=== PATIENT | male | born 1965 | race Caucasian/White ===

== ENCOUNTER 2017-05-24 16:05 | Emergency (ER) | payer MEDICARE, MEDICAID ==
[~2017-05-24] VITALS: Ht 177.8 cm; Wt 75.0 kg
[~2017-05-24 16:05] MED LIST: ALBU18HF INH; CARI250T PO; LAMO150T2 PO; LEVE500T3 PO; PRAZ2CAP2 PO; VENL75TA3 PO
--- NOTE | 2017-05-24 16:13 | ED.REPORT ---
HPI-General Illness Date of Service May 24, 2017 ED Provider: Dr. Avila The pt is a 51 y/o male with a hx of anxiety and seizure disorder who presents to the ED complaining of 3/10 aching and non-radiating right sided chest pain that lasted about 5 minutes, onset 2 hours ago while he was resting. The pain returned 15 minutes later and lasted about a minute. There are no modifying factors to his pain. Associated sx include palpitations and shortness of breath with palpitations, and lightheadedness. He states he experienced similar lightheadedness before his previous seizures. He has been compliant with his seizure medications. He denies abdominal pain, nausea, vomiting, constipation, and diarrhea. The pt is asymptomatic in the ED. Nursing Notes Stated Complaint: CHEST PAIN/HIGH PULSE Chief Complaint: Chest Pain Nursing Notes Reviewed: Yes Allergies: Coded Allergies: Aminoglycosides (Verified Allergy, Severe, 05/24/17) Replaces BACITRACIN/NE bacitracin (Verified Allergy, Severe, 05/24/17) Replaces BACITRACIN/NE neomycin (Verified Allergy, Severe, 05/24/17) Replaces BACITRACIN/NE polymyxin B (Verified Allergy, Severe, 05/24/17) Replaces BACITRACIN/NE Scheduled Lamotrigine (Lamotrigine) 150 Mg Tablet 150 MG PO BID Levetiracetam (Levetiracetam) 500 Mg Tablet 500 MG PO BID Prazosin (Prazosin) 2 Mg Capsule 2 MG PO BID Venlafaxine (Venlafaxine) 75 Mg Tablet 75 MG PO BIDWM 1.5 tabs at hs Scheduled PRN Albuterol Sulfate (Ventolin HFA Inhaler) 200 Puff/18 Gm Inhaler 1 PUFF INH Q4 PRN PRN For Wheezing Carisoprodol (Soma) 250 Mg Tablet 250 MG PO TID PRN PRN For Pain General Time Seen by MD: 18:31 Chief Complaint Chest pain Hx Obtained From: Patient Arrived By: Walk-in Sudden in Onset?: Yes Onset Occurred: 1 - 4 hours ago Symptom Duration: 1 - 15 minutes Location: : Chest Quality: Painful Radiation: : Does not radiate Severity: Current: No pain currently Severity: Maximum: Pain level 3 out of 10 Recent Healthcare: No recent doctor visit Past Medical History Past Medical History Hx partial seizures (EMR indicates Keppra and lamictal) Anxiety Cevical stenosis Reports: Depression, Seizure disorder Past Surgical History Vasectomy Rhinoplasty Varicoceleectomy Smoking History Current Every Day Smoker Social History Alcohol Use: Denies alcohol use Drug Use: THC Ambulatory Status Independent HEART Score HEART for MACE Score: 0-3 (low risk 0.9%-1.7%) Review of Systems Full Review of Systems Respiratory: Reports: Shortness of breath (with palpitations) Cardiovascular: Reports: Chest pain, Palpitations GI: Denies: Abdominal pain, Constipation, Diarrhea, Nausea, Vomiting Neurologic: Reports: Lightheaded Complete sys rev & neg: except as marked. Physical Exam Nursing note and vitals reviewed. Constitutional: Well-developed, well-nourished. Not diaphoretic. Head: Normocephalic and atraumatic. Mouth/Throat: Oropharynx is clear and moist. No oropharyngeal exudate. Eyes: EOM are normal. Pupils are equal, round, and reactive to light. Neck: Supple, no tracheal deviation. Cardiovascular: tachycardia,regular rhythm. Equal and intact distal pulses throughout. Pulmonary/Chest: Effort normal and breath sounds normal. No respiratory distress. Abdominal: Soft. No distension. There is no tenderness, rebound, or guarding. Bowel sounds present. Musculoskeletal: Range of motion grossly intact, moving all extremities. No edema or tenderness appreciated. Neurological: AOx3. Grossly nonfocal exam. Strength and sensation intact and equal to bilateral upper and lower extremities. Skin: Warm and dry, no rashes or pallor appreciated. Psychiatric: Appropriate mood and affect. Behavior appears normal. Vital Signs Vital Signs Date Time Temp Pulse Resp B/P Pulse Ox O2 Delivery O2 Flow Rate FiO2 05/24/17 20:30 82 18 110/58 97 Room Air 05/24/17 16:40 98 23 127/83 100 Room Air 05/24/17 16:15 36.5 110 22 130/80 100 Room Air Interpretation & Diagnostics Lab Results Interpretation Result Diagram: 05/24/17 1641 05/24/17 1641 Test 05/24/17 16:41 05/24/17 18:45 White Blood Count 7.2th/mm3 (3.8-10.1) Red Blood Count 4.88mil/mm3 (4.40-5.80) Hemoglobin 15.2g/dL (13.8-17.2) Hematocrit 42.0% (41.0-50.0) Mean Corpuscular Volume 86.1fL (81-100) Mean Corpuscular Hemoglobin 31.1pg (27.0-35.0) Mean Corpuscular Hemoglobin Concent 36.2% (32.0-37.0) Red Cell Distribution Width 12.4% (12.3-15.4) Platelet Count 209bil/L (150-400) Neutrophils (%) (Auto) 53.6% (40-74) Lymphocytes (%) (Auto) 34.3% (14-46) Monocytes (%) (Auto) 9.3% (4-12) Eosinophils (%) (Auto) 2.2% (0-5) Basophils (%) (Auto) 0.3% (0-3) Sodium Level 138mEq/L (134-144) Potassium Level 3.3mEq/L (3.5-5.2) Chloride Level 99mEq/L (97-108) Carbon Dioxide Level 22mmol/L (18-29) Blood Urea Nitrogen 17mg/dL (6-24) Creatinine 1.24mg/dL (0.76-1.27) Estimat Glomerular Filtration Rate 65mL/min (>59) Glucose Level 101mg/dL (60-99) Calcium Level 9.4mg/dL (8.5-10.1) Magnesium Level 2.2mg/dL (1.6-2.6) Total Bilirubin 0.7mg/dL (0.0-1.2) Aspartate Amino Transf (AST/SGOT) 23U/L (0-50) Alanine Aminotransferase (ALT/SGPT) 11U/L (0-44) Alkaline Phosphatase 72U/L (25-150) Total Protein 7.5g/dL (6.4-8.4) Albumin 4.5g/dL (3.4-5.0) Lipase 24U/L (13-60) Troponin T < 0.010ug/L (0.0-0.011) ECG Interpretation ECG Interpretation: Sinus tachycardia. Rate 109. Probable left atrial enlargement. No acute ischemic changes. Time: 16:14 Interpreted by: ED physician X-Ray Chest Interpretation Chest Xray Interpretation: IMPRESSION: Prior rib fractures, on the right at the posterolateral mid chest level. A definite source of acute chest pain is not found. Dictated by: Nicholas Javed M.D. on 05/24/2017 at 16:36 Approved by: Nicholas Javed M.D. on 05/24/2017 at 16:36 View: Portable, 1 view Interpretation / Wet Read by: Interpret - Radiologist Re-Eval/Medical Decision Med Decision/Clinical Course In summary, 51-year-old male with a PMHx notable for hepatitis C who presents to the ED for evaluation of transient, nonexertional, nonradiating, right-sided chest pain earlier today, since resolved. Differential includes ACS, PE, PTX, aortic dissection, myocarditis/pericarditis, abdominal etiology such as cholecystitis, MSK pain. Pain has now resolved without intervention; troponin negative x 2. HEART score of 2. EKG demonstrates sinus rhythm with no acute ischemic changes. No pleuritic symptoms, recent history of extended travel/ immobilization, cancer. Not having any shortness of breath other than when having brief chest pain; low risk by [employer]. No evidence of pneumothorax on chest x-ray or exam. Pain not described as tearing through to the back, CXR w/ no evidence of widened mediastinum, normal neuro exam, and equal pulses to bilateral upper and lower extremities; aortic dissection seems very unlikely. Neither clinical presentation, exam, or EKG seem c/w pericarditis or myocarditis. No abdominal pain or tenderness. Potassium of 3.3, repleted. Rest of labs reviewed, unremarkable. Mild tachycardia upon arrival, since resolved. Given the resolution of his symptoms, reassuring workup, reasonable to discharge home with very careful return precautions, close PCP follow-up in the next several days. Patient agreeable to plan, no further questions. Time of Eval: 18:33 Re-Evaluation/Progress Note: Discussed lab results with the pt, including low potassium levels and plan to give potassium chloride. Also discussed the plan to do a repeat troponin.The pt understands and agrees with the plan. All questions answered. Time of Eval: 18:42 Re-Evaluation/Progress Note: Discussed diagnosis and plan to discharge if repeat troponin is normal. The pt understands and agrees with the plan. F/U and RTER given. All questions answered. Counseled Regarding: Diagnosis, Lab results, Need for follow-up, When/why to return to ED Discharge & Departure Primary Impression: Chest pain Chest pain type: unspecified Qualified Code: R07.9 - Chest pain, unspecified Disposition: Home Discharge Condition All VS Reviewed: Yes Condition: Stable Patient Instructions: Chest Pain (ED) Additional Instructions: Thank you for allowing us to be a part of your care in the ED today. Your emergency department results, including lab work and EKG, are reassuring. I do not think that there is an emergent cause for your symptoms today that would require admission to the hospital; however, a clear cause of your symptoms was not identified. Please schedule a follow up appointment with your primary care physician tomorrow for a recheck. Please return to the emergency department for any new or worsening symptoms including any nausea, vomiting, abdominal pain, shortness of breath, chest pain , one sided weakness/numbness, fevers, or chills, or if there's anything else of concern to you. Referrals: Rachelle Heaton MD (PCP) Scribe Attestation Portions of this note were transcribed by Derrick Moyer. I,, personally performed the history,physical exam and medical decision-making;I reviewed and confirmed the accuracy of the information in the transcribed note. Signed by Arsen Ferguson. 05/24/17 copies to: Rachelle Heaton MD, William B MD May 24, 2017 16:12 Derrick Moyer May 24, 2017 18:37
[2017-05-24 16:15] VITALS: BP 130/80; PULSE 110; RESP 22; O2SAT 100
--- NOTE | 2017-05-24 16:38 | DRSVH ---
PROCEDURE: X-RAY CHEST ONE VIEW, PORTABLE ([id number]) INDICATIONS: chest pain TECHNIQUE: One view of the chest was acquired. COMPARISON: [facility], CR, CHEST 2VW, 01/14/2010, 12:57. [facility], RG, CH EST 1VW (PORTABLE) , 01/22/2005, 10:55. FINDINGS: Surgical changes and devices: None. Lungs and pleura: No pleural effusions or pneumothorax. Lungs are clear. Mediastinum: Mediastinal contours appear normal. Heart size is normal. Bones and chest wall: No suspicious bony lesions. Overlying soft tissues appear unremarkable. Prio r healed right posterolateral rib fractures mid chest level IMPRESSION: Prior rib fractures, on the right at the posterolateral mid chest level. A definite sour ce of acute chest pain is not found. Dictated by: Nicholas Javed M.D. on 05/24/2017 at 16:36 Approved by: Nicholas Javed M.D. on 05/24/2017 at 16:36
[2017-05-24 16:40] VITALS: BP 127/83; PULSE 98; RESP 23; O2SAT 100
[2017-05-24 16:45] LABS: BASOPHILS % (AUTO) 0.3 % (0-3); EOSINOPHILS % (AUTO) 2.2 % (0-5); MONOCYTES % (AUTO) 9.3 % (4-12); Mean Corpuscular Hemoglobin 31.1 pg (27.0-35.0); Mean Corpuscular Volume 86.1 fL (81-100); NEUTROPHILS % (AUTO) 53.6 % (40-74); Platelet Count 209 bil/L (150-400)
[2017-05-24 17:10] LABS: TROPONIN T < 0.010 ug/L (0.0-0.011)
[2017-05-24 17:20] LABS: Magnesium 2.2 mg/dL (1.6-2.6)
[2017-05-24] MEDS ORDERED: Potassium Chloride 20 mEq/15 mL 15mL Oral Soln PO ONE (18:25)
[2017-05-24 20:30] VITALS: BP 110/58; PULSE 82; RESP 18; O2SAT 97
== END 2017-05-24 20:31 | disposition home or self-care (01) ==
LOC: SED 16:05
DX: R07.9 Chest pain, unspecified (principal); R00.2 Palpitations; R06.02 Shortness of breath; R42 Dizziness and giddiness; F41.8 Other specified anxiety disorders; F17.200 Nicotine dependence, unspecified, uncomplicated; Z88.1 Allergy status to other antibiotic agents; Z88.8 Allergy status to other drugs, medicaments and biological substances